=== PATIENT | male | born 1995 | race Caucasian/White ===

== ENCOUNTER 2018-06-12 14:40 | Emergency (ER) | payer BC, OTHER ==
[2018-06-12] MEDS: morphine 4 MG/ML VIAL IV (15:16)
[2018-06-12] MEDS: DIPHTH/TET/ACEL PERTUSS (ADULT) 0.5 ML VIAL IM* (15:17)
[2018-06-12] MEDS: LIDOCAINE 2% (MDV) 20 ML INJ INJ (15:18)
[2018-06-12] MEDS: ERTAPENEM SODIUM 1 GM in SOD CHLORIDE 0.9% 100 ML IVPB (15:26)
== END 2018-06-12 17:06 | disposition home or self-care (01) ==
LOC: FTE 14:40
DX: S81.812A Laceration without foreign body, left lower leg, initial encounter (principal); S71.101A Unspecified open wound, right thigh, initial encounter; W54.0XXA Bitten by dog, initial encounter; Y92.9 Unspecified place or not applicable; Z23 Encounter for immunization
CPT/HCPCS: 90471; 90715; 96374; 96375; 99284-25

== ENCOUNTER 2018-06-17 10:04 | Emergency (ER) | payer BC | END 2018-06-17 11:11 | disposition home or self-care (01) | LOC: FTE 10:04 | DX: S81.851D Open bite, right lower leg, subsequent encounter (principal); S81.852D Open bite, left lower leg, subsequent encounter; W54.0XXD Bitten by dog, subsequent encounter | CPT/HCPCS: 99282 ==

== ENCOUNTER 2018-06-26 10:23 | Emergency (ER) | payer BC ==
[2018-06-26] MEDS: MUPIROCIN 2% 22 GM OINT TOP (11:49)
== END 2018-06-26 12:03 | disposition home or self-care (01) ==
LOC: FTE 10:23
DX: S71.151D Open bite, right thigh, subsequent encounter (principal); W54.0XXD Bitten by dog, subsequent encounter
CPT/HCPCS: 99282